=== PATIENT | male | born 1980 | race Two or more races ===

== ENCOUNTER 2016-08-27 20:40 | Emergency (ER) | payer OTHER ==
[~2016-08-27] VITALS: Ht 167.6 cm; Wt 74.8 kg
[2016-08-27] MEDS ORDERED: NKM (21:09)
[2016-08-27 21:10] VITALS: BP 129/81
[2016-08-27] MEDS ORDERED: IBUPROFEN600 MG ORAL (21:34)
[2016-08-27] MEDS ORDERED: CYCLOBENZAPRINE10 MG ORAL (21:34)
[2016-08-27 21:46] VITALS: BP 129/81
--- NOTE | 2016-08-28 03:37 | Emergency Room Report ---
History of Present Illness General Chief Complaint: Lower Back Pain or Injury Source: Patient Present Illness HPI 36-year-old male presents ED complaining of back pain. States pain started tonight after lifting heavy object at work. Patient states pain is 8 out of 10 , throbbing, localized across lower back, nonradiating, worse with bending and twisting. No other aggravating relieving factors. Denies bowel or bladder incontinence. Denies motor weakness. Denies any other associated symptom Allergies: Coded Allergies: No Known Allergies (Unverified , 08/27/16) Patient History Past Medical History: none Past Surgical History: none Pertinent Family History: none Social History: Denies: alcohol use, drug use, smoking Immunizations: UTD Reviewed Nursing Documentation: PMH: Agreed, PSxH: Agreed Nursing Documentation-PMH Past Medical History: No Stated History Review of Systems All Other Systems: negative except mentioned in HPI Physical Exam Vital Signs Date Time Temp Pulse Resp B/P Pulse Ox O2 Delivery O2 Flow Rate FiO2 08/27/16 21:04 98.1 71 16 129/81 98 Room Air Sp02 EP Interpretation: reviewed, normal General Appearance: no apparent distress, alert, GCS 15, non-toxic Head: normocephalic Eyes: bilateral eye PERRL, bilateral eye normal inspection ENT: normal ENT inspection Neck: normal inspection Respiratory: normal inspection Cardiovascular #1: normal inspection Gastrointestinal: normal inspection Rectal: deferred Genitourinary: no CVA tenderness, no vertebral tenderness Musculoskeletal: tender - paraspinal lumbar tenderness Neurologic: alert, oriented x3, responsive, motor strength/tone normal, sensory intact, speech normal Psychiatric: normal inspection Skin: normal inspection Lymphatic: normal inspection Medical Decision Making Diagnostic Impression: Primary Impression: Low back pain Qualified Codes: M54.5 - Low back pain ER Course Hospital Course 36-year-old male presents ED complaining of lower back pain. Differential diagnoses include: pyelonephritis, kidney stone, muscle strain, Lspine fracture Clinical course Patient placed on stretcher. After initial history and physical I ordered motrin for pain. Upon reassessment patient states pain has improved. Upon review of EMR, patient does not have any visits to ED requesting pain medications. Diagnosis - back pain Stable and discharged to home with prescription for motrin, Flexeril. Followup with PMD. Return to ED if symptoms recur or worsen Last Vital Signs Date Time Temp Pulse Resp B/P Pulse Ox O2 Delivery O2 Flow Rate FiO2 08/27/16 21:46 98.1 16 129/81 98 Room Air 08/27/16 21:10 87 Status: improved Disposition: HOME, SELF-CARE Condition: Stable Scripts Cyclobenzaprine Hcl* (FLEXERIL*) 10 Mg Tablet 10 MG ORAL TID Y for Muscle Spasm, #20 TAB Prov: PAOLA WALTON M.D. 08/27/16 Ibuprofen* (MOTRIN*) 600 Mg Tablet 600 MG ORAL Q8H Y for For Pain, #30 TAB 0 Refills Prov: PAOLA WALTON M.D. 08/27/16 Referrals: NOT CHOSEN IPA/,REFERRING (PCP) Departure Forms: Return to Work Return to Work Date: Aug 29, 2016 Work Restrictions: No Heavy Lifting Other Restrictions: no heavy lifting Patient Instructions: Lumbosacral Strain PAOLA WALTON M.D. Aug 28, 2016 03:37
== END 2016-08-27 21:48 | disposition home or self-care (01) ==
LOC: EMR 21:13
DX: M54.5 Low back pain (principal)
CPT/HCPCS: 99284